=== PATIENT | male | born 1980 | race Caucasian/White ===

== ENCOUNTER → 2017-10-01 15:16 | Outpatient (CLI) | payer MEDICARE, MEDICAID | END | disposition home or self-care (01) | LOC: D.RAD 15:16 | DX: R53.83 Other fatigue (principal) ==

== ENCOUNTER 2018-05-12 15:15 | Emergency (ER) | payer MEDICARE ==
[~2018-05-12] VITALS: Ht 172.7 cm; Wt 81.4 kg
[2018-05-12 15:27] VITALS: BP 120/95; Ht 172.7 cm; Wt 81.4 kg
[2018-05-12] MEDS ORDERED: PAXIL20 MG PO (15:29)
[2018-05-12] MEDS ORDERED: RISPERDAL1 MG PO (15:29)
[2018-05-12] MEDS ORDERED: DEPAKOTE ER250 MG PO (15:29)
[2018-05-12] MEDS ORDERED: LINZESS145 MCG PO (15:54)
[2018-05-12 16:10] LABS: BASOPHILS 0.2 % (0-2); EOSINOPHILS 0.6 % (0-7); HEMOGLOBIN 14.4 g/dL (13.5-17.5); IMMATURE GRANULOCYTES 0.2 % (0-5); LYMPHOCYTES 26.7 % (15-50); MCH 30.8 pg (26.0-34.0); MCV 85.5 fL (80.0-100.0); MEAN PLATELET VOLUME 12.1 fL (7.4-10.4); MONOCYTES 6.3 % (2-11); PLATELET COUNT 198 10x3/uL (130-400); RBC 4.68 10x6/uL (4.20-6.10); RDW 12.6 % (11.5-14.5); WBC 4.6 10x3/uL (4.8-10.8)
[2018-05-12 16:36] LABS: ALBUMIN 3.9 g/dL (3.4-5.0); ALKALINE PHOSPHATASE 57 U/L (46-116); ALT (SGPT) 19 U/L (10-68); BILIRUBIN - TOTAL 0.57 mg/dL (0.2-1.3); CALC OSMOLALITY 281 mosm/kg (275-300); CALCIUM 9.3 mg/dL (8.5-10.1); CARBON DIOXIDE 26.7 mmol/L (21.0-32.0); CHLORIDE - SERUM 101 mmol/L (98-107); CREATININE - SERUM 0.9 mg/dL (0.6-1.3); GLUCOSE 92 mg/dL (74-106); LIPASE 149 U/L (73-393); POTASSIUM - SERUM 3.6 mmol/L (3.5-5.1); PROTEIN - SERUM 7.2 g/dL (6.4-8.2); SODIUM 141 mmol/L (136-145); UREA NITROGEN 16 mg/dL (7-18); eGFR NON AFRICAN AMERICAN > 90 mL/min (90-120)
== END 2018-05-12 17:40 | disposition home or self-care (01) ==
LOC: D.ER 15:15
PROVIDERS: Emergency Medicine
DX: K58.9 Irritable bowel syndrome, unspecified (principal); G40.909 Epilepsy, unspecified, not intractable, without status epilepticus

== ENCOUNTER 2018-06-06 13:51 | Emergency (ER) | payer MEDICARE ==
[~2018-06-06] VITALS: Ht 172.7 cm; Wt 81.8 kg
[~2018-06-06 13:51] MED LIST: DEPAKOTE ER250 MG PO; LINZESS145 MCG PO; PAXIL20 MG PO; RISPERDAL1 MG PO
[2018-06-06 14:12] VITALS: Ht 172.7 cm; Wt 81.8 kg
[2018-06-06] MEDS ORDERED: STERAPRED 5MG 65 M1 PO (15:45)
[2018-06-06 16:07] VITALS: BP 114/56
== END 2018-06-06 16:08 | disposition home or self-care (01) ==
LOC: D.ER 13:51
DX: R51 Headache (principal); T78.40XA Allergy, unspecified, initial encounter; X58.XXXA Exposure to other specified factors, initial encounter

== ENCOUNTER 2018-08-06 17:40 | Emergency (ER) | payer MEDICARE ==
[~2018-08-06] VITALS: Ht 172.7 cm; Wt 72.7 kg
[~2018-08-06 17:40] MED LIST changes: +STERAPRED 5MG 65 M1 PO
[2018-08-06 17:43] VITALS: Ht 172.7 cm; Wt 72.7 kg
[2018-08-06 19:05] LABS: APPEARANCE CLEAR (CLEAR); BILIRUBIN NEGATIVE (NEGATIVE); COLOR YELLOW (YELLOW); GLUCOSE NEGATIVE (NEGATIVE); KETONE SMALL mg/dL (NEGATIVE); NITRITE NEGATIVE (NEGATIVE); PROTEIN NEGATIVE (NEGATIVE); SPECIFIC GRAVITY 1.005 (1.005-1.020); UROBILINOGEN NORMAL (NORMAL)
[2018-08-06 19:21] LABS: UDS - AMPHET NEGATIVE QUAL (NEGATIVE); UDS - BARB NEGATIVE QUAL (NEGATIVE); UDS - BENZO NEGATIVE QUAL (NEGATIVE); UDS - COCAINE NEGATIVE QUAL (NEGATIVE); UDS - OPIATE NEGATIVE QUAL (NEGATIVE); UDS - PCP NEGATIVE QUAL (NEGATIVE); UDS - THC NEGATIVE QUAL (NEGATIVE)
[2018-08-06 19:46] LABS: BASOPHILS 0.1 % (0-2); EOSINOPHILS 0.3 % (0-7); HEMATOCRIT 40.3 % (42.0-54.0); HEMOGLOBIN 14.2 g/dL (13.5-17.5); IMMATURE GRANULOCYTES 0.3 % (0-5); MCH 30.4 pg (26.0-34.0); MCHC 35.2 g/dL (31.0-37.0); MCV 86.3 fL (80.0-100.0); MEAN PLATELET VOLUME 10.2 fL (7.4-10.4); MONOCYTES 4.8 % (2-11); NEUTROPHILS 83.5 % (40-80); PLATELET COUNT 263 10x3/uL (130-400); RBC 4.67 10x6/uL (4.20-6.10); RDW 14.5 % (11.5-14.5); WBC 11.6 10x3/uL (4.8-10.8)
[2018-08-06 19:49] LABS: ALBUMIN 3.5 g/dL (3.4-5.0); ANION GAP 12.9 mmol/L (8-16); BILIRUBIN - TOTAL 0.9 mg/dL (0.2-1.3); CALCIUM 9.5 mg/dL (8.5-10.1); CARBON DIOXIDE 29.9 mmol/L (21.0-32.0); CREATININE - SERUM 1.4 mg/dL (0.6-1.3); MAGNESIUM - SERUM 2.2 mg/dL (1.8-2.4); POTASSIUM - SERUM 3.8 mmol/L (3.5-5.1); PROTEIN - SERUM 7.2 g/dL (6.4-8.2)
[2018-08-07] VITALS: BP 124/78
== END 2018-08-07 01:00 ==
LOC: D.ER 17:40
PROVIDERS: Emergency Medicine
DX: F23 Brief psychotic disorder (principal)